=== PATIENT | male | born 1950 | race Two or more races ===

== ENCOUNTER → 2017-09-06 | Outpatient (CLI) | payer MEDICARE, OTHER ==
--- NOTE | 2017-09-06 16:00 | CT ---
EXAMINATION TYPE: CT sinus wo con DATE OF EXAM: 09/06/2017 COMPARISON: NONE HISTORY: Chronic sinusitis. CT DLP: 660.9 mGycm CONTRAST: None The paranasal sinuses are examined in the axial plane at 2 mm thick sections. Reconstructed images i n the coronal plane were obtained. The maxillary sinuses are clear. The ethmoid air cells are clear. The sphenoid sinuses are clear. The frontal sinuses are clear. The septum is evaluated. There is septal deviation to the right. There may be a right septal spur.. Small bilateral andrés bullosa are present. The ostiomeatal units are patent. Maxillary spine appears intact. IMPRESSIONS: 1. Right septal deviation and a right septal spur. 2. No acute or chronic sinusitis changes. 3. Small bilateral andrés bullosa, normal variants.
--- NOTE | 2017-09-07 07:56 | US ---
EXAMINATION TYPE: US kidneys/renal and bladder DATE OF EXAM: 09/06/2017 COMPARISON: NONE CLINICAL HISTORY: Elevated Creatinine R79.89. Abnormal labs. On lasik. No pain. EXAM MEASUREMENTS: Right Kidney: 10.3 x 4.5 x 4.5 cm Left Kidney: 9.2 x 5.0 x 5.7 cm Right Kidney: Lateral cystic appearing lesion vs prominent pyramid = 1.8 x 1.4 x 1.4 cm. Appears lar pinky than contralateral kidney. Left Kidney: wnl Bladder: distended, wnl as visualized Bilateral Jets seen No hydronephrosis. IMPRESSION: 1. Lateral mid right kidney simple appearing renal cyst.
== END | disposition home or self-care (01) ==
LOC: RADCTMAIN 15:26
PROVIDERS: ATTEND Internal Medicine
DX: J34.2 Deviated nasal septum (principal); J34.89 Other specified disorders of nose and nasal sinuses; N28.1 Cyst of kidney, acquired; R79.89 Other specified abnormal findings of blood chemistry
CPT/HCPCS: 70486; 76770

== ENCOUNTER 2019-03-06 19:22 | Emergency (ER) | payer MEDICARE, OTHER ==
[2019-03-06 19:42] VITALS: BP 131/69; PULSE 66; RESP 18; TEMP 97.3
[2019-03-06] MEDS ORDERED: DOXYCYCLINE 100 MG CAP PO STA (20:20)
--- NOTE | 2019-03-06 20:22 | ED ---
Skin/Abscess/FB HPI - General Chief complaint: Skin/Abscess/Foreign Body Stated complaint: Bug Bite Time Seen by Provider: 03/06/19 19:25 Source: patient Mode of arrival: ambulatory Limitations: no limitations - History of Present Illness Initial comments: 68-year-old male presenting for lesion in left axillary region. Patient states that today he noticed what looked like a scab pain from his skin he states he could not get a close look. He noticed mild bleeding and a surrounding rash. He states he is unsure if this was a tick or scab. Patient denies any significant pain he denies fever chills night sweats. Patient denies rapid spread of erythema, he denies headache neck stiffness joint pain abdominal pain. Remaining review of systems negative upon arrival patient appears well afebrile no signs of acute distress - Related Data Home Medications Medication Instructions Recorded Confirmed Furosemide [Lasix] 10 mg PO DAILY 03/06/19 03/06/19 Previous Rx's Medication Instructions Recorded Apixaban [Eliquis] 5 mg PO BID #60 tab 12/09/16 Atorvastatin [Lipitor] 40 mg PO DAILY #30 tab 12/09/16 Carvedilol [Coreg*] 12.5 mg PO BID-W/MEALS #60 tab 12/09/16 Lisinopril [Zestril] 2.5 mg PO DAILY #60 tab 12/09/16 Nitroglycerin Sl Tabs [Nitrostat] 0.4 mg SUBLINGUAL Q5M PRN #30 tab 12/09/16 Ranitidine HCl [Zantac] 150 mg PO BID #30 tab 12/09/16 Doxycycline [Vibramycin] 100 mg PO BID 14 Days #28 capsule 03/06/19 Allergies Allergy/AdvReac Type Severity Reaction Status Date / Time No Known Allergies Allergy Verified 03/06/19 19:35 Review of Systems ROS Statement: Those systems with pertinent positive or pertinent negative responses have been documented in the HPI. ROS Other: All systems not noted in ROS Statement are negative. Past Medical History Past Medical History: Atrial Fibrillation, Heart Failure, COPD, Respiratory Disorder Additional Past Medical History / Comment(s): Patient has not been to a PCP in 37 years. History of Any Multi-Drug Resistant Organisms: None Reported Past Surgical History: No Surgical Hx Reported Past Anesthesia/Blood Transfusion Reactions: No Reported Reaction Past Psychological History: No Psychological Hx Reported Smoking Status: Former smoker Past Alcohol Use History: None Reported Past Drug Use History: Marijuana - Past Family History Father Family Medical History: CVA/TIA Mother Family Medical History: CVA/TIA General Exam - General Exam Comments Initial Comments: General: The patient is awake and alert, in no distress, and does not appear acutely ill. Eye: Pupils are equal, round and reactive to light, extra-ocular movements are intact. No nystagmus. There is normal conjunctiva bilaterally. No signs of icterus. Ears, nose, mouth and throat: There are moist mucous membranes and no oral lesions. Neck: The neck is supple, there is no tenderness or JVD. Cardiovascular: There is a regular rate and rhythm. No murmur, rub or gallop is appreciated. Respiratory: Lungs are clear to auscultation, respirations are non-labored, breath sounds are equal. No wheezes, stridor, rales, or rhonchi. Musculoskeletal: Normal ROM, no tenderness. Strength 5/5. Sensation intact. Pulses equal bilaterally 2+. Neurological: A&O x 3. CN II-XII intact, There are no obvious motor or sensory deficits. Coordination appears grossly intact. Speech is normal. Skin: Skin is warm and dry and no rashes circular lesion in the left axilla, mild surrounding erythema with Center puncture. Small amount of bruising noted. No palpable abscess. No significant pain on palpation Psychiatric: Cooperative, appropriate mood & affect, normal judgment. Limitations: no limitations Course Vital Signs 03/06/19 19:28 Temperature 97.3 F L Pulse Rate 66 Respiratory 18 Rate Blood Pressure 131/69 O2 Sat by Pulse 95 Oximetry Medical Decision Making - Medical Decision Making 68-year-old male presenting for rash possible tick bite. Patient's history of scab like foreign body removed from right axilla with surrounding circular rash concerning for tick bite. Patient be treated with doxycycline. There is no significant psych sialitis or abscess on current examination. Patient is afebrile is no other positive review of systems. Patient is felt primary care provider return parameters were discussed at length. Patient was discharged. While discussing care plant attending provider Dr. Lawrence Disposition Clinical Impression: Insect bite Disposition: HOME SELF-CARE Condition: Good Instructions (If sedation given, give patient instructions): Lyme Disease (ED), Tick Bite (ED) Additional Instructions: Please use medication as discussed. Please follow-up with family doctor in the next 2 days.. Please return to emergency room if the symptoms increase or worsen or for any other concerns, headache, neck stiffness, fever, joint pain, abdominal pain. Prescriptions: Doxycycline [Vibramycin] 100 mg PO BID 14 Days #28 capsule Is patient prescribed a controlled substance at d/c from ED?: No Referrals: Alli Shaw MD [Primary Care Provider] - 1-2 days Time of Disposition: 20:22
== END 2019-03-06 20:41 | disposition home or self-care (01) ==
LOC: EC 19:22
DX: S40.861A Insect bite (nonvenomous) of right upper arm, initial encounter (principal); I50.9 Heart failure, unspecified; Z87.891 Personal history of nicotine dependence; Z79.899 Other long term (current) drug therapy; W57.XXXA Bitten or stung by nonvenomous insect and other nonvenomous arthropods, initial encounter; Y93.H2 Activity, gardening and landscaping; Y92.096 Garden or yard of other non-institutional residence as the place of occurrence of the external cause
CPT/HCPCS: 99283